=== PATIENT | female | born 1975 | race Two or more races ===

== ENCOUNTER 2018-12-25 09:48 | Emergency (ER) | payer SELFPAY ==
[~2018-12-25] VITALS: Ht 162.6 cm; Wt 102.1 kg
[~2018-12-25 09:48] MED LIST: PRO125RS
[2018-12-25 10:04] VITALS: BP 148/92
[2018-12-25] MEDS ORDERED: KETOROLAC TROMETH 60MG/2ML VIAL IM ONE (11:30)
== END 2018-12-25 12:23 | disposition home or self-care (01) ==
LOC: ER 09:54 → EDUNIT# 09:54 → ER 12:17
DX: S16.1XXA Strain of muscle, fascia and tendon at neck level, initial encounter (principal); M54.12 Radiculopathy, cervical region; X58.XXXA Exposure to other specified factors, initial encounter; Y93.89 Activity, other specified; Y99.8 Other external cause status; Y92.89 Other specified places as the place of occurrence of the external cause
CPT/HCPCS: 72040; 96372; 99283; J1885